=== PATIENT | male | born 1945 | race Caucasian/White ===

== ENCOUNTER 2022-03-22 18:10 | Emergency (ER) | payer MEDICARE, BC ==
[2022-03-22] MEDS: Sodium Chloride 0.9% 10 ML Syringe FLUSH PRN ×2 (18:34→20:11)
[2022-03-22 19:22] LABS: ESTIMATED GFR 63 mL/min (>60)
[2022-03-22] MEDS ORDERED: Heparin Sodium 5,000 Units/ML Vial IVPUSH ONE (19:44)
[2022-03-22] MEDS ORDERED: Heparin Sodium/D5W 25,000 UNITS/500 ML BAG IV SCH (19:45)
[2022-03-22] MEDS ORDERED: Aspirin 81 MG Tab.Chew PO ONE (19:47)
[2022-03-22] MEDS ORDERED: Iopamidol 755 Mg/ML 100 ML Bottle IVPUSH ONE (19:50)
[2022-03-22] MEDS ORDERED: Sodium Chloride 0.9% 100 ML IV SCH (20:00)
== END 2022-03-22 21:00 ==
LOC: JD.ED 18:10
DX: I21.4 Non-ST elevation (NSTEMI) myocardial infarction (principal); I25.2 Old myocardial infarction; Z88.8 Allergy status to other drugs, medicaments and biological substances; Z95.5 Presence of coronary angioplasty implant and graft; Z87.891 Personal history of nicotine dependence; Z20.822 Contact with and (suspected) exposure to COVID-19
CPT/HCPCS: 36415; 71045; 71275; 80053; 83735; 83880; 84484; 85007; 85027; 85379; 85610; 85730; 93005; 96365; 99285; A9270; J1644; J3490; Q9967; U0002; 93010; 99284